=== PATIENT | male | born 1980 | race Caucasian/White ===

== ENCOUNTER 2018-10-05 16:57 | Emergency (ER) | payer OTHER ==
[~2018-10-05] VITALS: Ht 182.9 cm; Wt 65.8 kg
--- NOTE | 2018-10-05 17:03 | NUR ---
KINZA CHACKO AT BEDSIDE FOR MSE.
[2018-10-05] MEDS ORDERED: predniSONE 20 MG TABLET ONE (17:09)
[2018-10-05] MEDS ORDERED: ALBUTEROL SULFATE 2.5 MG/3 ML NEBU ONE (17:14)
[2018-10-05] MEDS ORDERED: IPRATROPIUM BROMIDE 0.5 MG/2.5 ML NEBU ONE (17:14)
[2018-10-05] MEDS ORDERED: predniSONE 20 MG TABLET PO ONE (17:15)
[2018-10-05] MEDS ORDERED: ALBUTEROL SULFATE 2.5 MG/3 ML NEBU NEB ONE (17:15)
[2018-10-05] MEDS ORDERED: IPRATROPIUM BROMIDE 0.5 MG/2.5 ML NEBU NEB ONE (17:15)
--- NOTE | 2018-10-05 17:23 | NUR ---
INSIDE METER TESTER AT BEDSIDE.
--- NOTE | 2018-10-05 17:38 | NUR ---
PT PROVIDED W/ WATER AND FOOD.
--- NOTE | 2018-10-05 17:38 | NUR ---
PT PROVIDED W/ TAP CARD BY [employer]UR[employer] SALESPERSON, MARY.
[2018-10-05 18:02] VITALS: BP 122/86
--- NOTE | 2018-10-05 18:02 | NUR ---
Patient given written and verbal discharge instructions. Patient verbalizes understanding of instructions. Patient is ambulatory with steady gait. Refuses offer of [facility] placement. Patient given list of available shelters in surrounding area. ALL BELONGINGS W/ PT.
== END 2018-10-05 18:03 | disposition home or self-care (01) ==
LOC: ER 16:57
DX: J22 Unspecified acute lower respiratory infection (principal); J44.9 Chronic obstructive pulmonary disease, unspecified; R19.7 Diarrhea, unspecified; F17.290 Nicotine dependence, other tobacco product, uncomplicated; Z59.0 Homelessness
CPT/HCPCS: 71045; 94640; 99283; 99406; J7512; A4663; J3590